=== PATIENT | male | born 1945 | race Caucasian/White ===

== ENCOUNTER 2020-10-31 19:08 | Emergency (ER) | payer MEDICAID ==
[~2020-10-31] VITALS: Ht 167.6 cm; Wt 89.0 kg
[2020-10-31 19:42] VITALS: BP 159/65
== END 2020-10-31 20:57 | disposition left against medical advice (07) ==
LOC: ER 19:14
DX: Z53.21 Procedure and treatment not carried out due to patient leaving prior to being seen by health care provider (principal); R10.9 Unspecified abdominal pain
CPT/HCPCS: 93005